=== PATIENT | male | born 1960 | race Caucasian/White ===

== ENCOUNTER 2019-01-06 16:44 | Inpatient (IN) ==
[2019-01-06] MEDS ORDERED: chlordiazePOXIDE 25 MG CAPSULE PO PRN (17:40)
[2019-01-06] MEDS ORDERED: LORazepam 2 MG/1 ML VIAL IV PRN (17:40)
[2019-01-06] MEDS ORDERED: NICOTINE 21 MG/24 HR PATCH TRANSDERM PRN (17:42)
[2019-01-06] MEDS ORDERED: METHOCARBAMOL 750 MG TABLET PO PRN (18:27)
[2019-01-06] MEDS ORDERED: cloNIDine 0.1 MG TABLET PO PRN (18:48)
[2019-01-06] MEDS: DEXTROSE 5% NACL 0.9% 1,000 ML IV SCH (18:53)
[2019-01-06] MEDS: LORazepam 1 MG TABLET PO SCH ×2 (18:53→22:40)
[2019-01-06] MEDS: chlordiazePOXIDE 25 MG CAPSULE PO SCH ×2 (18:53→23:37)
[2019-01-06 18:57] LABS: Albumin 3.8 G/DL (3.4-5.0); Bilirubin,Total 0.4 MG/DL (0.2-1.0); Calcium 8.2 MG/DL (8.5-10.1); Osmolality,Calculated 272.8 MOS/KG (273-304)
[2019-01-06 18:59] LABS: INR 0.9; Partial Thromboplastin Time 26.6 SECS (0-40)
[2019-01-06 19:02] LABS: Folate 6.4 NG/ML (5.4-24.0)
[2019-01-06] MEDS: busPIRone 15 MG TABLET PO SCH (20:36)
[2019-01-06] MEDS: BUPRENORPHINE SL TAB 2 MG TABLET SL SCH (20:36)
[2019-01-07] MEDS: LORazepam 1 MG TABLET PO SCH ×3 (02:27→09:43)
[2019-01-07] MEDS: BUPRENORPHINE SL TAB 2 MG TABLET SL SCH (02:28)
[2019-01-07] MEDS: LEVOTHYROXINE 25 MCG TABLET PO SCH (05:36)
[2019-01-07] MEDS: chlordiazePOXIDE 25 MG CAPSULE PO SCH ×2 (05:36→14:00)
[2019-01-07 06:01] LABS: Risk Ratio 3.98; VLDL CHOLESTEROL 85.4 MG/DL
[2019-01-07] MEDS: CYANOCOBALAMIN 500 MCG TABLET PO SCH (08:27)
[2019-01-07] MEDS: busPIRone 15 MG TABLET PO SCH ×3 (09:43→20:40)
[2019-01-07] MEDS: PANTOPRAZOLE 40 MG VIAL IV SCH (09:44)
[2019-01-07] MEDS: FOLIC ACID 1 MG TABLET PO SCH (09:44)
[2019-01-07] MEDS: PARoxetine 20 MG TABLET PO SCH (09:44)
[2019-01-07] MEDS: THIAMINE 200 MG/2 ML VIAL IV SCH (09:44)
[2019-01-07] MEDS ORDERED: ACETAMINOPHEN 325 MG TABLET PO PRN (09:44)
[2019-01-07] MEDS: MULTIVITAMIN (CENTRUM) TABLET PO SCH (09:44)
[2019-01-07] MEDS: traZODone 50 MG TABLET PO SCH (09:44)
[2019-01-07] MEDS: DEXTROSE 5% NACL 0.9% 1,000 ML IV SCH (09:46)
[2019-01-07] MEDS: CARVEDILOL 25 MG TABLET PO SCH ×2 (09:46→17:14)
[2019-01-07] MEDS ORDERED: ONDANSETRON 4 MG/2 ML VIAL IV PRN (09:53)
[2019-01-07] MEDS ORDERED: METOPROLOL TARTRATE 5 MG/5 ML VIAL IV ONE (09:56)
[2019-01-07] MEDS ORDERED: MULTIVITAMIN INJ 10 ML in DEXTROSE 5% NACL 0.9% 1,000 ML IV SCH (10:00)
[2019-01-07 10:37] LABS: Calcium 7.8 MG/DL (8.5-10.1); Osmolality,Calculated 283.4 MOS/KG (273-304)
[2019-01-07] MEDS ORDERED: MAGNESIUM SULF RIDER 2 GM in PREMIX 1 EACH IV ONE (10:51)
[2019-01-07] MEDS: ENOXAPARIN 40 MG/0.4 ML SYRINGE SUBCUT SCH (11:56)
[2019-01-07 12:09] LABS: Basophils # 0.1 10*3/uL (0.0-0.2); Basophils % 0.8 % (0.0-0.8); Eosinophils # 0.2 10*3/uL (0.0-0.87); Hemoglobin 13.6 GM/DL (14.0-18.0); Immature Granulocytes % 0.3 %; Immature Granulocytes Absolute 0.02 #; Lymphocytes # 2.4 10*3/uL (1.4-4.0); Lymphocytes % 31.9 % (21.2-54.2); Mean Corpuscular HGB Conc 33.2 GM/DL (32-36); Mean Corpuscular Volume 94.7 FL (87-102); Mean Platelet Volume 9.3 FL (9.6-12.0); Monocytes % 7.8 % (1.7-12.7); Neutrophils % 57.2 % (38.7-73.9); Platelet Count 176 T/CUMM (130-400); Red Blood Count 4.33 MC/CUMM (3.8-5.5); Red Cell Distribution Width 17.4 % (9.3-17.3); White Blood Count 7.4 T/CUMM (4-12)
[2019-01-08] MEDS: DEXTROSE 5% NACL 0.9% 1,000 ML IV SCH ×3 (01:00→23:34)
[2019-01-08 02:23] LABS: Basophils % 0.5 % (0.0-0.8); Eosinophils # 0.2 10*3/uL (0.0-0.87); Eosinophils % 2.8 % (0.00-10.9); Hematocrit 37.4 VOL% (42.0-52.0); Hemoglobin 11.5 GM/DL (14.0-18.0); Immature Granulocytes % 0.4 %; Immature Granulocytes Absolute 0.02 #; Lymphocytes # 1.2 10*3/uL (1.4-4.0); Lymphocytes % 21.3 % (21.2-54.2); Mean Corpuscular HGB Conc 30.7 GM/DL (32-36); Mean Corpuscular Volume 98.4 FL (87-102); Mean Platelet Volume 9.1 FL (9.6-12.0); Monocytes % 12.1 % (1.7-12.7); Neutrophils % 62.9 % (38.7-73.9); Platelet Count 110 T/CUMM (130-400); Red Cell Distribution Width 17.3 % (9.3-17.3); White Blood Count 5.7 T/CUMM (4-12)
[2019-01-08 02:53] LABS: Albumin 3.1 G/DL (3.4-5.0); Bilirubin,Total 0.6 MG/DL (0.2-1.0); Calcium 8.5 MG/DL (8.5-10.1); Osmolality,Calculated 284.1 MOS/KG (273-304); Total Protein 6.7 G/DL (6.4-8.3)
[2019-01-08] MEDS: LORazepam 1 MG TABLET PO PRN ×2 (03:25→07:07)
[2019-01-08] MEDS: LEVOTHYROXINE 25 MCG TABLET PO SCH (05:49)
[2019-01-08 06:57] LABS: Apearance,Urine CLEAR (Clear); Bilirubin,Urine Negative (Negative); Blood, Urine Negative (Negative); Glucose,Urine (UA) Negative (Negative); Hyaline Casts,Urine 1 /LPF (0-3); Ketones,Urine Negative (Negative); Mucus,Urine Few /LPF (Occasional); Nitrite,Urine Negative (Negative); Protein,Urine Negative; RBC,Urine 1 /HPF (0-4); Urine Color Yellow (Yellow); Urine Specific Gravity 1.023 (1.001-1.035); Urine Urobilinogen < 2.0 EU/DL (0.2-1.0); WBC,Urine <1 /HPF (0-6)
[2019-01-08 06:59] LABS: Barbiturates Screen,Urine Negative (Negative); Benzodiazepines Screen,Urine Positive (Negative); Cannabinoid Screen,Urine Negative (Negative); Opiate Screen,Urine Negative (Negative); Phencyclidine Screen,Urine Negative (Negative)
[2019-01-08] MEDS ORDERED: LORazepam 2 MG/1 ML VIAL ONE (07:28)
[2019-01-08] MEDS ORDERED: LORazepam 2 MG/1 ML VIAL IV ONE ×2 (07:31→07:35)
[2019-01-08] MEDS: traZODone 50 MG TABLET PO SCH (10:04)
[2019-01-08] MEDS: LORazepam 1 MG TABLET PO SCH ×4 (10:04→20:40)
[2019-01-08] MEDS: FOLIC ACID 1 MG TABLET PO SCH (10:04)
[2019-01-08] MEDS: CARVEDILOL 25 MG TABLET PO SCH ×2 (10:04→17:51)
[2019-01-08] MEDS: MULTIVITAMIN (CENTRUM) TABLET PO SCH (10:04)
[2019-01-08] MEDS: CYANOCOBALAMIN 500 MCG TABLET PO SCH (10:04)
[2019-01-08] MEDS: THIAMINE 200 MG/2 ML VIAL IV SCH (10:05)
[2019-01-08] MEDS: PANTOPRAZOLE 40 MG VIAL IV SCH (10:05)
[2019-01-08] MEDS: PARoxetine 20 MG TABLET PO SCH (10:05)
[2019-01-08] MEDS: busPIRone 15 MG TABLET PO SCH ×3 (10:06→20:40)
[2019-01-08] MEDS: ENOXAPARIN 40 MG/0.4 ML SYRINGE SUBCUT SCH (10:07)
[2019-01-09] MEDS: LORazepam 1 MG TABLET PO SCH ×6 (02:24→20:15)
[2019-01-09 04:13] LABS: Basophils % 0.6 % (0.0-0.8); Eosinophils # 0.2 10*3/uL (0.0-0.87); Eosinophils % 2.9 % (0.00-10.9); Hematocrit 38.5 VOL% (42.0-52.0); Hemoglobin 12.7 GM/DL (14.0-18.0); Immature Granulocytes % 0.4 %; Immature Granulocytes Absolute 0.02 #; Lymphocytes % 18.3 % (21.2-54.2); Mean Corpuscular Volume 94.8 FL (87-102); Mean Platelet Volume 10.3 FL (9.6-12.0); Monocytes % 9.7 % (1.7-12.7); NRBC # 0.02 10*3/uL; Neutrophils % 68.1 % (38.7-73.9); Platelet Count 77 T/CUMM (130-400); Red Blood Count 4.06 MC/CUMM (3.8-5.5); Red Cell Distribution Width 16.5 % (9.3-17.3); White Blood Count 5.2 T/CUMM (4-12)
[2019-01-09 04:38] LABS: Calcium 7.9 MG/DL (8.5-10.1); Osmolality,Calculated 279.3 MOS/KG (273-304)
[2019-01-09] MEDS: LEVOTHYROXINE 25 MCG TABLET PO SCH (05:20)
[2019-01-09 05:39] LABS: Eosinophils 4 % (0-10); Lymphocytes 19 % (20-55); Segmented Neutrophils 74 % (50-85); Total Cells Counted 100
[2019-01-09 05:40] LABS: Anisocytosis Slight; Microcytosis Slight; Platelet Estimate Decreased; Stomatocytes Few
[2019-01-09] MEDS: MULTIVITAMIN (CENTRUM) TABLET PO SCH (09:31)
[2019-01-09] MEDS: THIAMINE 200 MG/2 ML VIAL IV SCH (09:31)
[2019-01-09] MEDS: PANTOPRAZOLE 40 MG VIAL IV SCH (09:31)
[2019-01-09] MEDS: CARVEDILOL 25 MG TABLET PO SCH ×3 (09:31→17:31)
[2019-01-09] MEDS: FOLIC ACID 1 MG TABLET PO SCH (09:31)
[2019-01-09] MEDS: CYANOCOBALAMIN 500 MCG TABLET PO SCH (09:31)
[2019-01-09] MEDS: traZODone 50 MG TABLET PO SCH (09:31)
[2019-01-09] MEDS: PARoxetine 20 MG TABLET PO SCH (09:31)
[2019-01-09] MEDS: ENOXAPARIN 40 MG/0.4 ML SYRINGE SUBCUT SCH (09:32)
[2019-01-09] MEDS: busPIRone 15 MG TABLET PO SCH ×4 (09:33→20:15)
[2019-01-09] MEDS: DEXTROSE 5% NACL 0.9% 1,000 ML IV SCH (17:22)
[2019-01-09] MEDS: LEVOFLOXACIN INJ 750 MG in PREMIX 1 EACH IV SCH (17:22)
[2019-01-09] MEDS ORDERED: ZIPRASIDONE 20 MG/1 ML VIAL IM PRN (18:05)
[2019-01-10] MEDS: LORazepam 1 MG TABLET PO SCH ×3 (03:01→16:23)
[2019-01-10 05:12] LABS: Basophils % 0.3 % (0.0-0.8); Eosinophils # 0.2 10*3/uL (0.0-0.87); Eosinophils % 2.5 % (0.00-10.9); Hematocrit 33.4 VOL% (42.0-52.0); Immature Granulocytes % 0.3 %; Immature Granulocytes Absolute 0.02 #; Lymphocytes # 0.8 10*3/uL (1.4-4.0); Lymphocytes % 14.1 % (21.2-54.2); Mean Corpuscular HGB Conc 32.9 GM/DL (32-36); Mean Corpuscular Volume 93.6 FL (87-102); Mean Platelet Volume 9.5 FL (9.6-12.0); Monocytes % 7.5 % (1.7-12.7); Neutrophils % 75.3 % (38.7-73.9); Platelet Count 108 T/CUMM (130-400); Red Blood Count 3.57 MC/CUMM (3.8-5.5); Red Cell Distribution Width 15.8 % (9.3-17.3); White Blood Count 5.9 T/CUMM (4-12)
[2019-01-10] MEDS: LEVOTHYROXINE 25 MCG TABLET PO SCH (05:38)
[2019-01-10 05:39] LABS: Calcium 8.2 MG/DL (8.5-10.1); Osmolality,Calculated 271.7 MOS/KG (273-304)
[2019-01-10] MEDS ORDERED: POTASSIUM CHLORIDE 20 MEQ TABLET PO ONE (08:05)
[2019-01-10] MEDS: MULTIVITAMIN (CENTRUM) TABLET PO SCH (09:35)
[2019-01-10] MEDS: CYANOCOBALAMIN 500 MCG TABLET PO SCH (09:35)
[2019-01-10] MEDS: FOLIC ACID 1 MG TABLET PO SCH (09:35)
[2019-01-10] MEDS: traZODone 50 MG TABLET PO SCH (09:35)
[2019-01-10] MEDS: CARVEDILOL 25 MG TABLET PO SCH ×2 (09:35→16:23)
[2019-01-10] MEDS: busPIRone 15 MG TABLET PO SCH ×3 (09:35→20:00)
[2019-01-10] MEDS: PARoxetine 20 MG TABLET PO SCH (09:36)
[2019-01-10] MEDS: THIAMINE 200 MG/2 ML VIAL IV SCH (09:43)
[2019-01-10] MEDS: PANTOPRAZOLE 40 MG VIAL IV SCH (09:43)
[2019-01-10] MEDS: DEXTROSE 5% NACL 0.9% 1,000 ML IV SCH ×2 (09:44→23:11)
[2019-01-10] MEDS ORDERED: MAGNESIUM SULFATE 1 GM/2 ML VIAL IV ONE (11:00)
[2019-01-10] MEDS ORDERED: MAGNESIUM SULFATE 1 GM/2 ML VIAL IM ONE (11:00)
[2019-01-10] MEDS ORDERED: MAGNESIUM SULF RIDER 2 GM in PREMIX 1 EACH IV ONE (12:00)
[2019-01-10] MEDS: amLODIPine 5 MG TABLET PO SCH (16:23)
[2019-01-10] MEDS: LEVOFLOXACIN INJ 750 MG in PREMIX 1 EACH IV SCH (16:23)
[2019-01-11] MEDS: LORazepam 1 MG TABLET PO SCH (00:06)
[2019-01-11 04:23] LABS: Basophils % 0.4 % (0.0-0.8); Eosinophils # 0.1 10*3/uL (0.0-0.87); Eosinophils % 2.9 % (0.00-10.9); Hematocrit 33.8 VOL% (42.0-52.0); Hemoglobin 11.1 GM/DL (14.0-18.0); Immature Granulocytes % 0.7 %; Immature Granulocytes Absolute 0.03 #; Lymphocytes # 1.1 10*3/uL (1.4-4.0); Lymphocytes % 24.2 % (21.2-54.2); Mean Corpuscular HGB Conc 32.8 GM/DL (32-36); Mean Corpuscular Volume 95.2 FL (87-102); Mean Platelet Volume 9.1 FL (9.6-12.0); Monocytes % 10.1 % (1.7-12.7); Neutrophils % 61.7 % (38.7-73.9); Platelet Count 129 T/CUMM (130-400); Red Blood Count 3.55 MC/CUMM (3.8-5.5); Red Cell Distribution Width 16.5 % (9.3-17.3); White Blood Count 4.6 T/CUMM (4-12)
[2019-01-11 04:41] LABS: Calcium 8.2 MG/DL (8.5-10.1)
[2019-01-11] MEDS: LEVOTHYROXINE 25 MCG TABLET PO SCH (06:23)
[2019-01-11] MEDS: traZODone 50 MG TABLET PO SCH (09:08)
[2019-01-11] MEDS: FOLIC ACID 1 MG TABLET PO SCH (09:09)
[2019-01-11] MEDS: MULTIVITAMIN (CENTRUM) TABLET PO SCH (09:09)
[2019-01-11] MEDS: amLODIPine 5 MG TABLET PO SCH (09:09)
[2019-01-11] MEDS: CARVEDILOL 25 MG TABLET PO SCH ×2 (09:09→16:43)
[2019-01-11] MEDS: PARoxetine 20 MG TABLET PO SCH (09:09)
[2019-01-11] MEDS: CYANOCOBALAMIN 500 MCG TABLET PO SCH (09:09)
[2019-01-11] MEDS: PANTOPRAZOLE 40 MG VIAL IV SCH (10:02)
[2019-01-11] MEDS: THIAMINE 200 MG/2 ML VIAL IV SCH (10:02)
[2019-01-11] MEDS: busPIRone 15 MG TABLET PO SCH ×3 (10:57→20:47)
[2019-01-11] MEDS: THIAMINE 100 MG TABLET PO SCH (20:47)
[2019-01-11] MEDS: POLYETHYLENE GLYCOL POWDER 17 GM PACK PO SCH (20:47)
[2019-01-11] MEDS: LORazepam 1 MG TABLET PO PRN (20:47)
[2019-01-12] MEDS: LEVOTHYROXINE 25 MCG TABLET PO SCH (05:40)
[2019-01-12] MEDS ORDERED: PANTOPRAZOLE 40 MG TABLET PO SCH (09:00)
[2019-01-12] MEDS ORDERED: LEVOFLOXACIN 750 MG TABLET PO SCH (09:00)
[2019-01-12] MEDS: CYANOCOBALAMIN 500 MCG TABLET PO SCH (09:29)
[2019-01-12] MEDS: busPIRone 15 MG TABLET PO SCH ×2 (09:29→15:02)
[2019-01-12] MEDS: THIAMINE 100 MG TABLET PO SCH (09:30)
[2019-01-12] MEDS: FOLIC ACID 1 MG TABLET PO SCH (09:30)
[2019-01-12] MEDS: MULTIVITAMIN (CENTRUM) TABLET PO SCH (09:30)
[2019-01-12] MEDS: PARoxetine 20 MG TABLET PO SCH (09:30)
[2019-01-12] MEDS: amLODIPine 5 MG TABLET PO SCH (09:30)
[2019-01-12] MEDS: CARVEDILOL 25 MG TABLET PO SCH ×2 (09:30→16:15)
[2019-01-12] MEDS: traZODone 50 MG TABLET PO SCH (09:30)
[2019-01-12] MEDS: POLYETHYLENE GLYCOL POWDER 17 GM PACK PO SCH (09:31)
[2019-01-12] MEDS ORDERED: POLYVINYL ALCOHOL 1.4% OPH SOLN 15 ML BOTTLE BOTH EYES PRN (14:22)
[2019-01-12 16:14] VITALS: BP 141/89
[2019-01-12] MEDS: LORazepam 1 MG TABLET PO PRN (16:15)
== END 2019-01-12 17:46 | disposition home or self-care (01) | DRG 897 ==
LOC: N.4E → OBSVTOIN 17:13 → SUATTDRO 17:40
PROVIDERS: ADMIT Internal Medicine; ATTEND Internal Medicine